=== PATIENT | female | born 1970 | race Hispanic/Latino ===

== ENCOUNTER 2019-03-08 08:07 | Emergency (ER) | payer SELFPAY ==
[2019-03-08] MEDS ORDERED: Famotidine/PF 20 mg/2ml Vial ONE (08:26)
[2019-03-08] MEDS ORDERED: methylPREDNISolone Sod Succ/PF 125 MG/2 ML VIAL ONE (08:30)
[2019-03-08] MEDS ORDERED: diphenhydrAMINE 50 MG/ML VIAL ONE (08:30)
== END 2019-03-08 10:22 | disposition home or self-care (01) ==
LOC: ERS 08:07
DX: T78.3XXA Angioneurotic edema, initial encounter (principal)
CPT/HCPCS: 96361; 96374; 96375; J1200; J2930; S0028

== ENCOUNTER 2020-01-31 10:57 | Emergency (ER) | payer OTHER, SELFPAY ==
[2020-02-01 11:53] LABS: SARS-CoV-2 MS2 Positive; SARS-CoV-2 N Gene Negative; SARS-CoV-2 S Gene Negative; SARS-CoV-2 orf1ab Negative
== END 2020-01-31 12:40 | disposition home or self-care (01) ==
LOC: ERS 10:57
DX: R05 Cough (principal); Z20.828 Contact with and (suspected) exposure to other viral communicable diseases; F17.210 Nicotine dependence, cigarettes, uncomplicated
CPT/HCPCS: 87635; 99283; U0003